=== PATIENT | female | born 1985 | race Caucasian/White ===

== ENCOUNTER 2019-07-28 08:35 | Emergency (ER) | payer OTHER ==
[2019-07-28 08:39] VITALS: BP 155/83; PULSE 76; TEMP 98.5; BMI 40.7
[2019-07-28] MEDS ORDERED: LORATADINE 10 MG TABLET PO ONE (08:55)
[2019-07-28] MEDS ORDERED: LORATADINE 10 MG TABLET ONE ×2 (09:08→09:09)
--- NOTE | 2019-07-28 09:09 | PDOC ---
History of Present Illness - General Chief Complaint: Eye Problem Stated Complaint: EYE IRRITATION Time Seen by Provider: 07/28/19 08:48 History Source: Patient - History of Present Illness Timing/Duration: other (yesterday) Past History - Past Medical History Allergies/Adverse Reactions: Allergies Allergy/AdvReac Type Severity Reaction Status Date / Time No Known Allergies Allergy Verified 02/08/16 12:12 Home Medications: Ambulatory Orders Oxycodone HCl/Acetaminophen [Percocet 5-325 mg Tablet -] 1 - 2 tab PO Q4H PRN # 14 tablet MDD 4 02/08/16 Carboxymethylcellulose Sodium [Artificial Tears] 15 ml OP ASDIR #1 drops Loratadine [Claritin] 10 mg PO DAILY #14 tablet 07/28/19 Olopatadine HCl [Pataday] 2.5 ml OP DAILY #1 drops 07/28/19 COPD: No - Immunization History Immunization Up to Date: No - Psycho Social/Smoking Cessation Hx Smoking Status: No Smoking History: Never smoked Have you smoked in the past 12 months: No Number of Cigarettes Smoked Daily: 0 Information on smoking cessation initiated: No Hx Alcohol Use: No Drug/Substance Use Hx: No Review of Systems - Review of Systems Constitutional: No: Chills, Fever HEENTM: No: Eye Pain, Blurred Vision *Physical Exam - Vital Signs Last Vital Signs Temp Pulse Resp BP Pulse Ox 98.5 F 76 18 155/83 98 07/28/19 08:36 07/28/19 08:36 07/28/19 08:36 07/28/19 08:36 07/28/19 08:36 - Physical Exam General Appearance: Yes: Appropriately Dressed. No: Apparent Distress HEENT: positive: Normal Voice, Other (significant R periorbital edema w/ R conjunc erythema and chemosis w/ watery mucoid discharge, no surrounding erythema, L eye w/ trace mucoid watery discharge) Respiratory/Chest: negative: Respiratory Distress Integumentary: positive: Dry, Warm Neurologic: positive: Fully Oriented, Alert, Normal Mood/Affect Medical Decision Making - Medical Decision Making 07/28/19 09:12 34-year-old female, no significant history, here with R periorbital swelling with conjunctival redness, tearing and discharge x2 days. States L eye now involved. No itching. No obvious inciting factors. No eye pain, fb sensation, photophobia or visual changes. No contact lens use See exam B/l allergic conjunctivitis, R>>L Dose of claritin given here Dc w/ basic eye care, cool compresses and drops To return as needed Discharge - Discharge Information Problems reviewed: Yes Clinical Impression/Diagnosis: Allergic conjunctivitis Qualifiers: Laterality: bilateral Qualified Code(s): H10.13 - Acute atopic conjunctivitis, bilateral Condition: Stable Disposition: HOME - Additional Discharge Information Prescriptions: Carboxymethylcellulose Sodium [Artificial Tears] 15 ml OP ASDIR #1 drops Loratadine [Claritin] 10 mg PO DAILY #14 tablet Olopatadine HCl [Pataday] 2.5 ml OP DAILY #1 drops - Follow up/Referral Referrals: Viv Stone [Primary Care Provider] - - Patient Discharge Instructions Patient Printed Discharge Instructions: Conjunctivitis Additional Instructions: You have a condition called allergic conjunctivitis. Please use drops in both eyes as directed and take Claritin Refrain from rubbing your eyes as this can cause symptoms to worsen Apply cool compresses frequently throughout the day to both eyes to relieve swelling If after few days symptoms persist or worse, return to the ER - Post Discharge Activity Work/Back to School Note: Back to Work
== END 2019-07-28 09:15 | disposition home or self-care (01) ==
LOC: JER 08:35
DX: H10.13 Acute atopic conjunctivitis, bilateral (principal)
CPT/HCPCS: 99281-25

== ENCOUNTER → 2020-03-11 | Day surgery (SDC) | payer OTHER ==
--- NOTE | 2020-03-12 15:02 | PATH ---
Cytology Non-Gynecological Report Patient Name: [facility]. Rec. #: [id number] /Age/Gender: 1985 (Age: 34) / F Account: [id number] Location: RADIOLOGY INTER Taken: 03/11/2020 Received: 03/11/2020 Reported: 03/12/2020 Physicians: Rosetta Collazo M.D. Specimen(s) Received THYROID, RIGHT LOBE, FINE NEEDLE ASPIRATION Clinical History Right lobe, 1.45 x 1.31 x 1.35 cm Final Diagnosis THYROID, RIGHT LOBE, FINE NEEDLE ASPIRATION: SATISFACTORY FOR EVALUATION. BETHESDA V: HIGHLY SUSPICIOUS FOR PAPILLARY THYROID CARCINOMA. ATYPICAL FOLLICULAR CELLS WITH ENLARGED NUCLEI, NUCLEAR GROOVES AND INTRANUCLEAR CLEARING, DISPERSED CLUSTERS AND FEW SYNCITIAL FRAGMENTS IN A BACKGROUND OF SCATTERED LYMPHOCYTES, FEW LYMPHOHISTIOCYTIC AGGREGATES, AND LYMPHOID TANGLES. SEE COMMENT. Comment: Presence of lymphocytes raises the possibility of chronic lymphocytic thyroiditis. Increased TSH is noted. Suggest clinical, radiologic, and serologic correlation. Case seen in intradepartmental review with consensus on diagnosis. Findings discussed with Dr. Jeniffer Stone, 03/12/20. Electronically Signed Carrie Palacios M.D. Gross Description Received are eight direct smears, four of which are air-dried and Diff-Quik stained, and four of which are alcohol fixed and Pap stained. Also received is 20 ml of bloody formalin from which one cellblock is prepared.
== END | disposition home or self-care (01) ==
LOC: JRADIR 09:40
PROVIDERS: ATTEND Internal Medicine
PROC: 0G9K3ZX Drainage of Thyroid Gland, Percutaneous Approach, Diagnostic (ICD-10-PCS; principal; 2020-03-11)
DX: D44.0 Neoplasm of uncertain behavior of thyroid gland (principal)
CPT/HCPCS: 76942; 88173; 88305-TC

== ENCOUNTER 2021-12-25 15:09 | Emergency (ER) | payer OTHER ==
[2021-12-25 16:21] VITALS: BP 134/88; PULSE 68; TEMP 98.1; BMI 47.7
[2021-12-25] MEDS ORDERED: LACTATED RINGERS SOLUTION 1,000 ML/1,000 ML INFUS.BAG IV STA (17:36)
[2021-12-25 18:12] LABS: BASO % 0.6 % (0-2.0); EOS % 0.4 % (0-4.5); HEMATOCRIT 35.5 % (32.4-45.2); HEMOGLOBIN 11.8 GM/dL (10.7-15.3); MCHC 33.4 g/dl (32.0-36.0); MEAN PLT VOLUME 7.5 fl (7.5-11.1); MONO % 3.1 % (3.8-10.2); NEUT % 73.9 % (42.8-82.8); PLATELET COUNT 314 10^3/uL (134-434); RBC 4.23 M/mm3 (3.60-5.2); RDW 14.6 % (11.6-15.6); WHITE BLOOD COUNT 11.3 K/mm3 (4.0-10.0)
[2021-12-25 18:31] LABS: CALCIUM 8.3 mg/dL (8.5-10.1)
[2021-12-25 18:36] LABS: BILIRUBIN,TOTAL 0.6 mg/dL (0.2-1); CREATININE 0.6 mg/dL (0.55-1.3); TOT PROT 7.9 g/dl (6.4-8.2)
[2021-12-25] MEDS ORDERED: METOCLOPRAMIDE HCL INJECTION 10 MG/2 ML VIAL IVPUSH ONE (20:29)
[2021-12-25] MEDS ORDERED: ACETAMINOPHEN 1000 MG/100 ML BAG IVPB ONE (20:29)
[2021-12-25] MEDS ORDERED: METOCLOPRAMIDE HCL INJECTION 10 MG/2 ML VIAL ONE (20:38)
[2021-12-25] MEDS ORDERED: ACETAMINOPHEN INJECTION 100 ML IVPB ONE (20:39)
[2021-12-25 20:45] LABS: EPI CELLS 13 /uL (0-25.1); HYALINE CASTS 1 /uL (0-3.1); PH,URINE 6.5 (5.0-8.0); URINE APPEARANCE CLEAR; URINE BACTERIA 763 /uL (0-1359); URINE BILIRUBIN NEGATIVE (NEGATIVE); URINE COLOR YELLOW; URINE GLUCOSE (UA) NEGATIVE (NEGATIVE); URINE KETONE TRACE (NEGATIVE); URINE LEUK ESTERASE NEGATIVE (NEGATIVE); URINE NITRITE NEGATIVE (NEGATIVE); URINE PROTEIN NEGATIVE (NEGATIVE); URINE RBC 51 /uL (0-23.9); URINE UROBILINOGEN 0.2 mg/dL (0.2-1.0); URINE WBC 6 /uL (0-25.8)
[2021-12-25 21:05] LABS: HCG,QUALITATIVE URINE NEGATIVE
[2021-12-25] MEDS ORDERED: CALCIUM GLUC IN NACL, ISO-OSM 1 GM/50 ML BAG IVPB ONE (22:03)
[2021-12-25] MEDS ORDERED: CALCIUM GLUCONATE 10% - 1,000 MG/10 ML VIAL ONE (22:53)
== END 2021-12-26 00:02 | disposition home or self-care (01) ==
LOC: JER 15:09
PROC: 3E033GC Introduction of Other Therapeutic Substance into Peripheral Vein, Percutaneous Approach (ICD-10-PCS; principal; 2021-12-25)
DX: R51.9 Headache, unspecified (principal); E83.51 Hypocalcemia
CPT/HCPCS: 0241U-QW; 36415; 70450-TC; 80053; 81003; 84703; 85025; 87086; 87186; 93005; 93010; 99285-25